=== PATIENT | male | born 1970 | race Caucasian/White ===

== ENCOUNTER 2020-12-24 20:50 | Emergency (ER) | payer OTHER ==
[~2020-12-24 20:50] MED LIST: AMOXICILLIN500 MG PO; IBUPROFEN600 MG PO; OXYCODONE-ACET1 EAC1 PO; PREDNISONE 10MG10 MG PO; VIBRAMYCIN100 MG PO
== END 2020-12-24 22:40 | disposition home or self-care (01) ==
LOC: FER 20:50
DX: U07.1 COVID-19 (principal); F17.200 Nicotine dependence, unspecified, uncomplicated
CPT/HCPCS: 99284; U0002

== ENCOUNTER 2021-04-04 13:21 | Emergency (ER) | payer OTHER | END 2021-04-04 15:32 | disposition home or self-care (01) | LOC: FER 13:21 | DX: S01.112A Laceration without foreign body of left eyelid and periocular area, initial encounter (principal); N18.9 Chronic kidney disease, unspecified; F25.9 Schizoaffective disorder, unspecified; Z88.5 Allergy status to narcotic agent; Y04.0XXA Assault by unarmed brawl or fight, initial encounter; Y92.410 Unspecified street and highway as the place of occurrence of the external cause ==